=== PATIENT | female | born 1985 | race Caucasian/White ===

== ENCOUNTER → 2024-05-05 11:46 | Outpatient (REF) | payer BC, SELFPAY | LOC: WDC 11:46 | PROVIDERS: ATTENDING PHYSICIAN Family Medicine | DX: Z12.31 Encounter for screening mammogram for malignant neoplasm of breast (principal) | CPT/HCPCS: 77063; 77067 ==

== ENCOUNTER 2024-08-13 06:29 | Day surgery (SDC) | payer BC, SELFPAY | END 2024-08-13 11:26 | disposition home or self-care (01) | LOC: GI 06:29 | PROVIDERS: ATTENDING PHYSICIAN Internal Medicine Gastroenterology | DX: Z12.11 Encounter for screening for malignant neoplasm of colon (principal); D12.2 Benign neoplasm of ascending colon; K63.5 Polyp of colon; Q43.8 Other specified congenital malformations of intestine | CPT/HCPCS: 45385; 45380; 88305 ==

== ENCOUNTER → 2025-05-09 11:02 | Outpatient (REF) | payer BC, SELFPAY | LOC: WDC 11:02 | PROVIDERS: ATTENDING PHYSICIAN Family Medicine | DX: Z12.31 Encounter for screening mammogram for malignant neoplasm of breast (principal) | CPT/HCPCS: 77063; 77067 ==